=== PATIENT | male | born 1980 | race Caucasian/White ===

== ENCOUNTER 2022-11-04 08:58 | Emergency (ER) | payer OTHER, SELFPAY ==
[2022-11-04 09:28] VITALS: BMI 27.2
[2022-11-04 09:41] VITALS: BP 156/96; PULSE 81; RESP 18; TEMP 36.7; O2SAT 98
--- NOTE | 2022-11-04 10:14 | XR_ITS ---
WS: [id number] Exam: XR hip LT 2-3V wo/w pel* [id number] Date/Time of Exam: 11/04/2022 10:20 AM Reason For Exam: fall pain, recent surgery No acute LEFT hip fracture. There appears to be moderate posttraumatic degenerative narrowing of the joint compartment. There are numerous old bilateral pelvic fractures. Extensive hardware noted in the LEFT pelvis. A transverse screw bridges the bilateral SI joints. No sign of hardware failure. The vi sualized RIGHT hip is unremarkable. IMPRESSION: 1. 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 No acute fracture seen. 2. Multiple old bilateral pelvic fractures with extensive hardware.
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
[2022-11-04 12:09] VITALS: RESP 16; O2SAT 96
[2022-11-04] MEDS: HYDROmorphone 1 mg/mL INJ 1 mL SUBCUT (12:09)
[2022-11-04 12:15] VITALS: BP 163/99; PULSE 72; O2SAT 98
--- NOTE | 2022-11-04 12:15 | PC.NURSE ---
nurse assumed care at 12:00
--- NOTE | 2022-11-05 10:19 | DCPLANNER ---
manager quality compliance had message to speak with patient about getting established with a primary care physician. manager quality compliance called phone number [phone], no one at that number by that name.
== END 2022-11-04 13:01 | disposition home or self-care (01) ==
PROVIDERS: Emergency Provider Physician Assistant
DX: S70.02XA Contusion of left hip, initial encounter (principal); W18.2XXA Fall in (into) shower or empty bathtub, initial encounter
CPT/HCPCS: 73502; 96372; 99284; J1170

== ENCOUNTER 2024-08-29 10:53 | Emergency (ER) | payer OTHER, SELFPAY ==
[2024-08-29 11:02] VITALS: BP 125/79; PULSE 75; RESP 17; TEMP 36.6; O2SAT 98; BMI 28.7
--- NOTE | 2024-08-29 11:08 | XR_ITS ---
WS: [id number] Exam: XR hip LT 2-3V wo/w pel* [id number] Date/Time of Exam: 08/29/2024 11:16 AM Reason For Exam: fall Comparison 11/04/2022. No fracture noted. Moderate degenerative narrowing of the joint compartment. Extensive hardware in the LEFT pelvis. No sign of hardware failure or complication. Old bilateral pelvic fractures. Intramedullary felix seen in the proximal RIGHT femur. XR/XR hip LT 2-3V wo/w pel* [id number] IMPRESSION: 1. Moderately advanced degenerative narrowing of the LEFT hip joint. No fractur e. 2. Old pelvic fractures with extensive pelvic hardware showing no complication.
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
[2024-08-29 12:52] VITALS: O2SAT 95
--- NOTE | 2024-08-29 14:02 | PC.NURSE ---
Pt left the ER before I could splint him. Pt left the room while the outside door was being opened for another patient. Pt eloped.
--- NOTE | 2024-09-01 10:10 | DCPLANNER ---
messaged ortho for er f/u
== END 2024-08-29 14:04 | disposition home or self-care (01) ==
PROVIDERS: Emergency Provider Physician Assistant
DX: S62.325A Displaced fracture of shaft of fourth metacarpal bone, left hand, initial encounter for closed fracture (principal); Z87.891 Personal history of nicotine dependence; M25.552 Pain in left hip; W06.XXXA Fall from bed, initial encounter
CPT/HCPCS: 73130; 73502; 99284